=== PATIENT | female | born 1970 | race Caucasian/White ===

== ENCOUNTER 2018-04-04 12:45 | Inpatient (IN) ==
[2018-04-08 12:09] VITALS: BP 119/76
== END 2018-04-08 12:20 | disposition home or self-care (01) | DRG 392 ==
LOC: N.2W 14:34 → N.2E 15:52
PROVIDERS: ADMIT Family Medicine; ATTEND Family Medicine

== ENCOUNTER 2018-05-19 06:12 | Inpatient (IN) ==
[2018-05-15 11:21] LABS: Basophils # 0.1 10*3/uL (0.0-0.2); Basophils % 1.4 % (0.0-0.8); Eosinophils # 0.1 10*3/uL (0.0-0.87); Eosinophils % 1.2 % (0.00-10.9); Hematocrit 47.7 VOL% (35.7-47.0); Hemoglobin 16.8 GM/DL (12.0-16.0); Immature Granulocytes % 0.2 %; Immature Granulocytes Absolute 0.01 #; Lymphocytes # 2.9 10*3/uL (1.4-4.0); Lymphocytes % 48.8 % (21.3-54.2); Mean Corpuscular HGB Conc 35.2 GM/DL (32-36); Mean Corpuscular Hemoglobin 32 PG (27-34); Mean Corpuscular Volume 90.5 FL (87-102); Monocytes # 0.3 10*3/uL (0.11-0.8); Monocytes % 5.5 % (1.7-12.7); Neutrophils # 2.5 10*3/uL (1.4-7.4); Neutrophils % 42.9 % (38.7-73.9); Platelet Count 207 T/CUMM (130-400); Red Blood Count 5.27 MC/CUMM (3.8-5.5); Red Cell Distribution Width 13.2 % (9.3-17.3); White Blood Count 5.9 T/CUMM (4-12)
[2018-05-15 11:44] LABS: Albumin 4.1 G/DL (3.4-5.0); Bilirubin,Total 1.1 MG/DL (0.2-1.0); Calcium 8.7 MG/DL (8.5-10.1); Potassium 4.2 MMOL/L (3.5-5.1); Total Protein 7.6 G/DL (6.4-8.3)
[~2018-05-19 06:12] MED LIST: ALVIMOPAN 12 MG CAPSULE PO ONE; ERTAPENEM 1,000 MG in SODIUM CHLORIDE 0.9% 100 ML IV ONE
[2018-05-19] MEDS ORDERED: ERTAPENEM 1,000 MG VIAL ONE (06:19)
[2018-05-19] MEDS ORDERED: ALVIMOPAN 12 MG CAPSULE ONE (06:19)
[2018-05-19] MEDS ORDERED: cefOXitin 2,000 MG in SYRINGE 1 EACH IV ONE (06:30)
[2018-05-19] MEDS ORDERED: SCOPOLAMINE 1.5 MG PATCH TRANSDERM ONE (07:06)
[2018-05-19] MEDS ORDERED: FAMOTIDINE 20 MG/2 ML VIAL IV ONE (07:06)
[2018-05-19] MEDS ORDERED: LACTATED RINGERS 1,000 ML IV SCH (07:30)
[2018-05-19] MEDS ORDERED: TISSUE ADHESIVE 1 EACH APPLICATOR TOP ONE (07:51)
[2018-05-19] MEDS ORDERED: BUPIVACAINE 0.25% /EPI 10 ML VIAL ONE (11:39)
[2018-05-19] MEDS ORDERED: diphenhydrAMINE 50 MG/1 ML VIAL IV PRN (12:24)
[2018-05-19] MEDS ORDERED: ONDANSETRON 4 MG/2 ML VIAL IV PRN ×2 (12:24→13:35)
[2018-05-19] MEDS ORDERED: MORPHINE 10 MG/1 ML VIAL IV PRN (12:24)
[2018-05-19] MEDS ORDERED: PROMETHAZINE INJ 25 MG in SODIUM CHLORIDE 0.9% 50 ML IV PRN (12:24)
[2018-05-19] MEDS ORDERED: PROPOFOL 200 MG/20 ML VIAL IV ONE (12:29)
[2018-05-19] MEDS ORDERED: SEVOFLURANE 1 UNIT/15 MINUTE INH ONE (12:29)
[2018-05-19] MEDS ORDERED: MIDAZOLAM 2 MG/2 ML VIAL ONE (12:30)
[2018-05-19] MEDS ORDERED: DEXAMETHASONE 10 MG/1 ML VIAL ONE (12:30)
[2018-05-19] MEDS ORDERED: ONDANSETRON 4 MG/2 ML VIAL ONE ×2 (12:30→13:01)
[2018-05-19] MEDS ORDERED: fentaNYL 100 MCG/2 ML VIAL ONE (12:30)
[2018-05-19] MEDS ORDERED: ROCURONIUM 100 MG/10 ML VIAL IV ONE (12:31)
[2018-05-19] MEDS ORDERED: KETOROLAC 30 MG/1 ML VIAL ONE (12:31)
[2018-05-19] MEDS ORDERED: LACTATED RINGERS 2,000 ML IV ONE (12:31)
[2018-05-19] MEDS ORDERED: MEPERIDINE 25 MG/1 ML VIAL ONE ×2 (13:01→13:07)
[2018-05-19] MEDS: MEPERIDINE 25 MG/1 ML VIAL IV PRN ×2 (13:05→13:10)
[2018-05-19] MEDS ORDERED: PROMETHAZINE 25 MG/1 ML VIAL IM PRN (13:35)
[2018-05-19] MEDS: LACTATED RINGERS 1,000 ML IV SCH (13:47)
[2018-05-19] MEDS: HYDROmorphone 2 MG/1 ML VIAL IV PRN (14:06)
[2018-05-19] MEDS: KETOROLAC 30 MG/1 ML VIAL IV SCH ×2 (14:07→20:56)
[2018-05-19 14:28] LABS: Basophils # 0.1 10*3/uL (0.0-0.2); Basophils % 0.5 % (0.0-0.8); Eosinophils % 0.1 % (0.00-10.9); Hematocrit 46.7 VOL% (35.7-47.0); Hemoglobin 15.7 GM/DL (12.0-16.0); Immature Granulocytes % 0.4 %; Immature Granulocytes Absolute 0.04 #; Lymphocytes # 0.8 10*3/uL (1.4-4.0); Lymphocytes % 7.8 % (21.3-54.2); Mean Corpuscular HGB Conc 33.6 GM/DL (32-36); Mean Corpuscular Hemoglobin 32 PG (27-34); Mean Corpuscular Volume 94.2 FL (87-102); Monocytes # 0.2 10*3/uL (0.11-0.8); Monocytes % 1.8 % (1.7-12.7); Neutrophils # 8.9 10*3/uL (1.4-7.4); Neutrophils % 89.4 % (38.7-73.9); Platelet Count 182 T/CUMM (130-400); Red Blood Count 4.96 MC/CUMM (3.8-5.5)
[2018-05-19 14:48] LABS: Calcium 8.1 MG/DL (8.5-10.1); Osmolality,Calculated 281.7 MOS/KG (273-304); Potassium 3.6 MMOL/L (3.5-5.1)
[2018-05-19] MEDS: ALVIMOPAN 12 MG CAPSULE PO SCH (20:56)
[2018-05-20] MEDS: HYDROmorphone 2 MG/1 ML VIAL IV PRN ×4 (01:29→20:49)
[2018-05-20] MEDS: LACTATED RINGERS 1,000 ML IV SCH ×3 (02:10→16:11)
[2018-05-20] MEDS: KETOROLAC 30 MG/1 ML VIAL IV SCH ×4 (03:13→20:45)
[2018-05-20 05:30] LABS: Hematocrit 39.7 VOL% (35.7-47.0); Hemoglobin 13.9 GM/DL (12.0-16.0); Mean Corpuscular Hemoglobin 32 PG (27-34); Mean Corpuscular Volume 91.3 FL (87-102); Red Blood Count 4.35 MC/CUMM (3.8-5.5)
[2018-05-20 05:31] LABS: Basophils % 0.2 % (0.0-0.8); Immature Granulocytes % 0.4 %; Immature Granulocytes Absolute 0.04 #; Lymphocytes # 1.4 10*3/uL (1.4-4.0); Lymphocytes % 14.3 % (21.3-54.2); Mean Platelet Volume 9.5 FL (9.6-12.0); Monocytes # 0.7 10*3/uL (0.11-0.8); Monocytes % 7.1 % (1.7-12.7); Neutrophils # 7.8 10*3/uL (1.4-7.4); Platelet Count 216 T/CUMM (130-400); Red Cell Distribution Width 13.2 % (9.3-17.3)
[2018-05-20 05:36] LABS: Calcium 8.6 MG/DL (8.5-10.1); Osmolality,Calculated 278.7 MOS/KG (273-304); Potassium 4.1 MMOL/L (3.5-5.1)
[2018-05-20] MEDS: ALVIMOPAN 12 MG CAPSULE PO SCH ×2 (08:32→20:44)
[2018-05-20] MEDS: ESCITALOPRAM 10 MG TABLET PO SCH (08:32)
[2018-05-20] MEDS: PANTOPRAZOLE 40 MG TABLET PO SCH (08:33)
[2018-05-20] MEDS: ENOXAPARIN 40 MG/0.4 ML SYRINGE SUBCUT SCH (08:34)
[2018-05-20] MEDS: METOPROLOL SUCCINATE XL 50 MG TABLET PO SCH (09:43)
[2018-05-21] MEDS: LACTATED RINGERS 1,000 ML IV SCH ×3 (00:04→13:55)
[2018-05-21] MEDS: KETOROLAC 30 MG/1 ML VIAL IV SCH ×4 (01:30→21:01)
[2018-05-21] MEDS: HYDROmorphone 2 MG/1 ML VIAL IV PRN ×2 (05:28→21:04)
[2018-05-21] MEDS ORDERED: PITAVASTATIN 2 MG TABLET PO SCH (09:00)
[2018-05-21] MEDS: ENOXAPARIN 40 MG/0.4 ML SYRINGE SUBCUT SCH (09:40)
[2018-05-21] MEDS: METOPROLOL SUCCINATE XL 50 MG TABLET PO SCH (09:41)
[2018-05-21] MEDS: ESCITALOPRAM 10 MG TABLET PO SCH (09:41)
[2018-05-21] MEDS: ALVIMOPAN 12 MG CAPSULE PO SCH ×2 (09:41→21:01)
[2018-05-21] MEDS: PANTOPRAZOLE 40 MG TABLET PO SCH (09:41)
[2018-05-21] MEDS ORDERED: FUROSEMIDE 40 MG/4 ML VIAL IV ONE (23:00)
[2018-05-22] MEDS: KETOROLAC 30 MG/1 ML VIAL IV SCH ×2 (02:00→08:59)
[2018-05-22] MEDS: ESCITALOPRAM 10 MG TABLET PO SCH (08:58)
[2018-05-22] MEDS: METOPROLOL SUCCINATE XL 50 MG TABLET PO SCH (08:58)
[2018-05-22] MEDS: PANTOPRAZOLE 40 MG TABLET PO SCH (08:59)
[2018-05-22] MEDS: ALVIMOPAN 12 MG CAPSULE PO SCH (08:59)
[2018-05-22] MEDS: ENOXAPARIN 40 MG/0.4 ML SYRINGE SUBCUT SCH (08:59)
[2018-05-22] MEDS ORDERED: FUROSEMIDE 20 MG TABLET PO ONE (11:20)
[2018-05-22 11:58] VITALS: BP 137/97
== END 2018-05-22 12:24 | disposition home or self-care (01) | DRG 331 ==
LOC: N.SDSINP 06:12 → N.OR 06:12 → N.SDSINP 11:53 → N.5E 13:34
PROVIDERS: ADMIT Surgery; ATTEND Surgery